=== PATIENT | female | born 1940 | race Caucasian/White ===

== ENCOUNTER 2020-09-09 17:30 | Outpatient (CLI) | payer MEDICARE, BC | END 2020-09-09 17:31 | disposition home or self-care (01) | LOC: SLEEPLAB 17:30 | PROVIDERS: ATTEND Family Medicine | DX: G47.33 Obstructive sleep apnea (adult) (pediatric) (principal); R53.83 Other fatigue; I10 Essential (primary) hypertension; E66.9 Obesity, unspecified; G47.00 Insomnia, unspecified; G47.10 Hypersomnia, unspecified; Z68.41 Body mass index [BMI] 40.0-44.9, adult | CPT/HCPCS: 95806 ==

== ENCOUNTER → 2022-08-19 | Outpatient (CLI) | payer MEDICARE, BC | LOC: SLEEPLAB 19:30 | PROVIDERS: ATTEND Family Medicine | DX: R53.83 Other fatigue (principal); G47.33 Obstructive sleep apnea (adult) (pediatric); R09.89 Other specified symptoms and signs involving the circulatory and respiratory systems; E66.9 Obesity, unspecified; R06.83 Snoring; Z68.42 Body mass index [BMI] 45.0-49.9, adult | CPT/HCPCS: 95810 ==

== ENCOUNTER → 2022-08-26 | Outpatient (CLI) | payer MEDICARE, BC | LOC: SLEEPLAB 19:30 | PROVIDERS: ATTEND Family Medicine | DX: G47.33 Obstructive sleep apnea (adult) (pediatric) (principal) | CPT/HCPCS: 95811 ==